=== PATIENT | male | born 1975 | race Caucasian/White ===

== ENCOUNTER 2025-06-03 09:00 | Outpatient (CLI) | payer OTHER | END 2025-06-03 09:01 | disposition home or self-care (01) | LOC: BICCT 09:00 | PROVIDERS: ATTEND Nurse Practitioner Family | DX: E78.00 Pure hypercholesterolemia, unspecified (principal); I25.10 Atherosclerotic heart disease of native coronary artery without angina pectoris | CPT/HCPCS: 75571 ==